=== PATIENT | female | born 1980 | race Caucasian/White ===

== ENCOUNTER 2017-02-10 23:20 | Emergency (ER) | payer OTHER ==
[~2017-02-10] VITALS: Ht 167.6 cm; Wt 83.9 kg
[~2017-02-10 23:20] MED LIST: ATOR10TA PO; METO25TA14 PO; SYN.025 PO; WARF2TAB17 PO
[2017-02-10 23:22] VITALS: BP 149/90
--- NOTE | 2017-02-11 00:46 | NUR ---
PATIENT LEFT WITHOUT BEING SEEN BY DR. COLON. NO FURTHER CARE PROVIDED FOR PATIENT.
== END 2017-02-11 00:46 | disposition left against medical advice (07) ==
LOC: MED 23:20
DX: R07.89 Other chest pain (principal); R11.0 Nausea; Z53.21 Procedure and treatment not carried out due to patient leaving prior to being seen by health care provider